=== PATIENT | male | born 1990 | race Hispanic/Latino ===

== ENCOUNTER 2016-06-30 17:20 | Emergency (ER) | payer OTHER ==
[~2016-06-30] VITALS: Ht 167.6 cm; Wt 75.7 kg
[2016-06-30 17:41] VITALS: BP 137/94
== END 2016-06-30 19:38 | disposition home or self-care (01) ==
LOC: EME 17:20
DX: J40 Bronchitis, not specified as acute or chronic (principal); Z88.1 Allergy status to other antibiotic agents
CPT/HCPCS: 71020; 99281; 99283